=== PATIENT | male | born 1995 | race Caucasian/White ===

== ENCOUNTER 2020-11-12 13:13 | Emergency (ER) | payer OTHER, SELFPAY ==
--- NOTE | ~2020-11-12 | XR_ITS ---
EXAMINATION: XR lumbar spine 2-3V DATE: 11/12/2020 13:39 INDICATION: Low back pain. TECHNIQUE: 3 views of lumbar spine were obtained. COMPARISON: None. FINDINGS: There is 8 degrees dextrocurvature of lumbar spine. Vertebral body heights and intervertebr al disc heights are normal. IMPRESSION: 1. Lumbar dextrocurvature. Reviewed, dictated and finalized at location A. LA WORKER IMPRESSION: 1. Lumbar dextrocurvature.
--- NOTE | ~2020-11-12 | XR_ITS ---
EXAMINATION: XR elbow LT min 3V DATE: 11/12/2020 13:40 INDICATION: Left elbow pain. Fall. TECHNIQUE: 4 views of left elbow were obtained. COMPARISON: None. FINDINGS: Bone alignment is normal. No fracture. Joint spaces are well maintained. There is no elbow joint effusion. IMPRESSION: 1. Normal left elbow. Reviewed, dictated and finalized at location A. ER BLOCK LAYER IMPRESSION: 1. Normal left elbow.
[2020-11-12 13:24] VITALS: BP 119/73; PULSE 67; RESP 20; TEMP 36.3; O2SAT 99
--- NOTE | 2020-11-12 13:41 | ED.GENADULT ---
HPI - General Adult General Chief complaint: Extremity Injury, Upper Stated complaint: L/arm & back pain Time Seen by Provider: 11/12/20 13:42 Source: patient and RN notes reviewed Mode of arrival: ambulatory Limitations: no limitations History of Present Illness HPI narrative: 25-year-old male presents with complaints of diffused left side back pain and left elbow pain after falling down approximately 10 steps prior to [facility]. Aly reports he was walking down steps when his dog charged him from behind, he fell down steps causing back and LT elbow pain. No treatment. Denies radiating pain, numbness, or tingling. Denies hitting head, loss of consciousness, syncopal episodes, dizziness, or seizure activities. Denies fever or chills. No lower extremity pain or weakness. Exacerbating factors consist of certain movements. Dominant hand is the RIGHT HAND. Denies nausea, vomiting, or abdominal pain. Tolerating po intake well. Denies problems with urinating or having a bowel movement, LBM today. No flank pain or hematuria or dysuria. The patient reports he have not been diagnosed with COVID-19. The patient reports he is not waiting for the results of a COVID-19 lab test. The patient reports he do not have chills, weakness, or fatigue. The patient reports he do not have a new or worsening cough or shortness of breath. Denies chest pain. The patient reports he do not have any rhinorrhea, congestion, loss of taste, sore throat, and diarrhea. Denies recent traveling. Denies concerns for COVID-19 or exposures been home with limited outdoor exposure except for essential household needs, work, and return home. At this time, patient is not suspected of having COVID-19. Some parts of this dictation were generated by voice recognition software and may contain typographical and/or grammatical inaccuracies. Related Data Home Medications Medication Instructions Recorded Confirmed fluticasone furoate-vilanterol inh INHALATION DAILY 11/12/20 [Breo Ellipta] levothyroxine 25 mcg DAILY 11/12/20 11/12/20 Allergies Allergy/AdvReac Type Severity Reaction Status Date / Time No Known Allergies Allergy Verified 11/12/20 13:16 Review of Systems Review of Systems: Narrative: CONSTITUTIONAL: Denies fever, chills, sweats. EYES: Denies visual changes, redness, discharge. ENT: Denies rhinorrhea, congestion, sore throat, otalgia. CARDIOVASCULAR: Denies chest pain, palpitations, edema. RESPIRATORY: Denies dyspnea, wheezing, cough. GASTROINTESTINAL: Denies abdominal pain, nausea, vomiting, diarrhea. GENITOURINARY: Denies dysuria, hematuria, abnormal discharge. SKIN: Denies rash or itching. MUSCULOSKELETAL: Complains of diffused LT side back pain and LT elbow pain. Denies joint pain or myalgia. NEUROLOGIC: Denies numbness or focal weakness. PSYCHIATRIC: Denies anxiety or depression. All systems reviewed & are unremarkable except as noted in HPI and below PMFSH Past Medical History Medical History (Updated 11/13/20 @ 00:00 by Arun Schmidt) Anxiety Asthma History of varicocele with varicocelectomy Hypothyroidism Surgical History Surgical History (Updated 11/12/20 @ 13:46 by NIKOLAS Mar) History of cholecystectomy History of hernia surgery Hx of appendectomy Family History Family History (Updated 11/12/20 @ 13:47 by NIKOLAS Mar) Grandparent Family history of thyroid disease Mother Family history of thyroid disease Father Alive and well Social History Social History (Updated 11/12/20 @ 13:48 by NIKOLAS Mar) Smoking status: Never smoker Tobacco type: cigarettes Alcohol intake: current Substance use: never Living arrangements: with family Occupation/Education: occupation Gender identity (if verbalized by the patient): Male Sexual Orientation (if Verbalized by the Patient): Straight or Heterosexual Comments At time of signature, agre
== END 2020-11-12 14:09 | disposition home or self-care (01) ==
PROVIDERS: Emergency Provider Nurse Practitioner Family
DX: M54.5 Low back pain (principal); S53.402A Unspecified sprain of left elbow, initial encounter; W10.9XXA Fall (on) (from) unspecified stairs and steps, initial encounter; E03.9 Hypothyroidism, unspecified; J45.909 Unspecified asthma, uncomplicated
CPT/HCPCS: 72100; 73080; 99214; G0463

== ENCOUNTER 2021-01-09 07:29 | Outpatient (CLI) | payer OTHER, SELFPAY | END 2021-01-09 07:30 | disposition home or self-care (01) | LOC: ANHAUDIO 07:31 | PROVIDERS: Visit Provider Nurse Practitioner Family | DX: H93.11 Tinnitus, right ear (principal) | CPT/HCPCS: 92552; 92556; 92567 ==

== ENCOUNTER 2021-04-06 10:43 | Emergency (ER) | payer OTHER, SELFPAY ==
[2021-04-06 10:56] VITALS: BP 119/71; PULSE 62; RESP 20; TEMP 36.2
--- NOTE | 2021-04-06 11:03 | ED.SKABFB ---
HPI - Skin/Abscess/Foreign Bdy General Chief complaint: Skin/Abscess/Foreign Body Stated complaint: Rash Time Seen by Provider: 04/06/21 10:46 Source: patient Mode of arrival: ambulatory Limitations: no limitations History of Present Illness HPI narrative: 26-year-old male presents to [facility] with complaints of erythematous itchy rash for the past 2 weeks. Patient reports that 2 weeks ago he started with a rash to the webspace in between his third and fourth fingers after wearing a glove while golfing. Patient reports that he applied [id number] Benadryl cream which improved the rash. Patient reports that the rash then started to spread diffusely to his bilateral antecubital regions, under his abdomen and bilateral ankles. Patient was that he does have sensitive skin. Patient reports that the rash does itch. Patient reports that no one else in his family has similar rash. Patient denies shortness of breath, wheezing, difficulty swallowing or trouble breathing. MD complaint: rash Onset (ago): week(s) (2) Quality: pruritic Pain Consistency: constant Relieving factors: none Treatments prior to arrival: OTC topical medication Related Data Home Medications Medication Instructions Recorded Confirmed levothyroxine 50 mcg DAILY 11/12/20 04/06/21 albuterol sulfate 2 inh INHALATION DAILY 04/06/21 04/06/21 Allergies Allergy/AdvReac Type Severity Reaction Status Date / Time No Known Allergies Allergy Verified 11/12/20 13:16 Review of Systems Constitutional: Constitutional: Denies chills, Denies fatigue, Denies fever(s) and Denies weakness ENT: Denies dizziness and Denies sore throat Cardiovascular: Cardiovascular: Denies chest pain and Denies radiating jaw, neck or arm pain Respiratory: Respiratory: Denies chest congestion, Denies cough, Denies dyspnea and Denies wheezing Gastrointestinal: Gastrointestinal: Denies abdominal pain, Denies diarrhea, Denies nausea and Denies vomiting Integumentary/Breasts: Skin/Breast: Reports pruritus, Reports rash and Denies skin ulcer PMFSH Past Medical History Medical History Anxiety Asthma History of varicocele with varicocelectomy Hypothyroidism Surgical History Surgical History History of cholecystectomy History of hernia surgery Hx of appendectomy Family History Family History Grandparent Family history of thyroid disease Mother Family history of thyroid disease Father Alive and well Social History Social History Smoking status: Never smoker Tobacco type: cigarettes Alcohol intake: current Substance use: never Gender identity (if verbalized by the patient): Male Comments At time of signature, I agree with nursing past medical, surgical, social and family history. There is no relevant family history pertinent to the presenting complaint. Exam Const: General: no acute distress Nutritional Appearance: well nourished Orientation/consciousness: patient oriented x3 Neck: Neck: normal visual inspection Resp: Effort & Inspection: normal respiratory effort, not labored and not tachypneic Auscultation: clear to auscultation bilaterally Cardio: Rate: regular rate, not bradycardic and not tachycardic Heart sounds: no murmurs Back/Spine/Pelvis: Back: no CVA tenderness Skin: General skin exam: normal color, no jaundice and no pallor Wounds: no wounds Other: Erythematous rash noted diffusely to bilateral antecubital regions, abdomen, left hip and bilateral ankles. Area of rash is pinpoint erythematous regions and likely represents a mite type rash. There is no vesicles noted. There is no streaking erythema, bruising, bleeding or signs of infection noted Neuro: General: patient oriented x3 Speech: normal speech Extrem: Gener
== END 2021-04-06 11:14 | disposition home or self-care (01) ==
PROVIDERS: Emergency Provider Nurse Practitioner Family
DX: R21 Rash and other nonspecific skin eruption (principal); J45.909 Unspecified asthma, uncomplicated; E03.9 Hypothyroidism, unspecified
CPT/HCPCS: 99213; G0463

== ENCOUNTER → 2022-11-25 08:11 | Outpatient (CLI) | payer OTHER, SELFPAY ==
--- NOTE | ~2022-11-25 | US_ITS ---
EXAMINATION: US breast LT complete HISTORY: Palpable lump at the 12:00 location of the left breast after trauma TECHNIQUE: Limited left breast ultrasound is performed in the area of clinical concern. FINDINGS: There is an 11 mm x 4 mm oval, circumscribed, parallel, anechoic mass with no posterior fea tures or internal vascularity at the 12:00 location 4 cm from the nipple corresponding to the palpabl e abnormality of concern. IMPRESSION: Probably sequela of prior trauma (old hematoma) corresponding to the palpable abnormality of concern. Recommend continued clinical follow-up and consider repeat ultrasound if there is increase in size. BI-RADS Category 2: Benign finding(s). Reviewed, dictated and finalized at location A. B[employer]ER [employer]ER OPERATOR IMPRESSION: Probably sequela of prior trauma (old hematoma) corresponding to the palpable a bnormality of concern. Recommend continued clinical follow-up and consider repe at ultrasound if there is increase in size. BI-RADS Category 2: Benign finding(s).
== END ==
PROVIDERS: PCP Internal Medicine; Visit Provider Internal Medicine
DX: N64.4 Mastodynia (principal)
CPT/HCPCS: 76641

== ENCOUNTER 2023-03-24 17:09 | Emergency (ER) | payer OTHER, SELFPAY ==
[2023-03-24 17:16] VITALS: BP 117/66; PULSE 63; RESP 18; TEMP 36.8; O2SAT 99
--- NOTE | 2023-03-24 17:18 | ED.SKABFB ---
HPI - Skin/Abscess/Foreign Bdy General Chief complaint: Skin/Abscess/Foreign Body Stated complaint: Rash Time Seen by Provider: 03/24/23 17:24 Source: patient and RN notes reviewed Mode of arrival: ambulatory Limitations: no limitations History of Present Illness HPI narrative: 28-year-old male presents with concern for itchy rash on his left leg. He reports the patch on his lower calf, a patch on his thigh and on his waist band. He reports he was out in the [employer] recently. Denies the rash is painful, he denies drainage from the rash. He reports he put calamine lotion on MD complaint: rash Related Data Allergies Allergy/AdvReac Type Severity Reaction Status Date / Time No Known Allergies Allergy Verified 03/24/23 17:26 Review of Systems Review of Systems: CONSTITUTIONAL: Denies malaise, chills, sweats, or fever. EYES: Denies redness, or discharge. ENT: Denies rhinorrhea, congestion, swollen lips, swollen tongue CARDIOVASCULAR: Denies chest pain, palpitations, or edema. RESPIRATORY: Denies cough or dyspnea. GASTROINTESTINAL: Denies abdominal pain, nausea, vomiting SKIN: Reports itchy rash on his left leg MUSCULOSKELETAL: Denies joint pain or myalgia. NEUROLOGIC: Denies headache. All systems reviewed & are unremarkable except as noted in HPI and below PMFSH Past Medical History Medical History Anxiety Asthma History of varicocele with varicocelectomy Hypothyroidism Surgical History Surgical History History of cholecystectomy History of hernia surgery Hx of appendectomy Family History Family History Grandparent Family history of thyroid disease Mother Family history of thyroid disease Father Alive and well Social History Social History Smoking status: Never smoker Tobacco type: cigarettes Alcohol intake: current Substance use: never Living arrangements: with family Occupation/Education: occupation Gender identity (if verbalized by the patient): Male Sexual Orientation (if Verbalized by the Patient): Straight or Heterosexual Comments At time of signature, agree with nursing past medical, surgical, social and family history. There is no relevant family history pertinent to the presenting complaint Exam Narrative: GENERAL: Well-appearing, well-nourished, and in no acute distress. HEAD: Normocephalic, atraumatic. EYES: PERRLA, conjunctivae clear, and EOMI. ENT: Mucous membranes moist. Oropharynx without edema, erythema or lesions. NECK: Supple. No lymphadenopathy CHEST: Clear to auscultation. No respiratory distress. HEART: Regular rate and rhythm. SKIN: Warm, dry. Erythematous papular patches with some scabbing noted to the lower left leg, mid thigh and waistband, no vesicles or drainage noted NEURO: Alert and oriented x3. PSYCH: Normal mood and affect Course Course Emergency Course: Patient is aware of diagnosis, understands and agrees to treatment plan. Anticipatory guidance given. Patient agrees to follow-up as directed and is aware of reasons to seek care at the emergency department. Portions of this record may have been created with voice recognition software Level of Care: [facility] Visit Vital Signs Vital signs: Vital Signs Temperature 98.2 F 03/24/23 17:16 Pulse Rate 63 03/24/23 17:16 Respiratory Rate 18 03/24/23 17:16 Blood Pressure 117/66 03/24/23 17:16 Pulse Oximetry 99 03/24/23 17:16 Oxygen Delivery Room Air 03/24/23 17:16 Temperature 98.2 F 03/24/23 17:16 Pulse Rate 63 03/24/23 17:16 Respiratory Rate 18 03/24/23 17:16 Blood Pressure 117/66 03/24/23 17:16 Pulse Oximetry 99 03/24/23 17:16 Oxygen Delivery Room Air 03/24/23 17:16 Reviewed. MDM - Skin/Abscess/Foreign Bdy MDM
== END 2023-03-24 17:35 | disposition home or self-care (01) ==
PROVIDERS: Emergency Provider Nurse Practitioner
DX: L25.9 Unspecified contact dermatitis, unspecified cause (principal); J45.909 Unspecified asthma, uncomplicated; E03.9 Hypothyroidism, unspecified
CPT/HCPCS: 99213; G0463